=== PATIENT | male | born 1980 | race Caucasian/White ===

== ENCOUNTER 2017-09-26 19:14 | Emergency (ER) | payer OTHER ==
[~2017-09-26] VITALS: Ht 165.1 cm; Wt 97.1 kg
[2017-09-26 19:19] VITALS: Ht 165.1 cm; Wt 97.1 kg
[2017-09-26 22:52] VITALS: BP 124/93
== END 2017-09-26 22:52 | disposition home or self-care (01) ==
LOC: ED 19:14
DX: J02.9 Acute pharyngitis, unspecified (principal); R68.84 Jaw pain; E11.9 Type 2 diabetes mellitus without complications
CPT/HCPCS: J1100

== ENCOUNTER 2018-02-20 17:41 | Emergency (ER) | payer OTHER ==
[~2018-02-20] VITALS: Ht 165.1 cm; Wt 96.2 kg
[2018-02-20 17:54] VITALS: Ht 165.1 cm; Wt 96.2 kg
[2018-02-20 21:00] LABS: BASOPHIL % 0.5 % (0-2); PLATELET COUNT 199 x10^3mcL (130-400); RED CELL DISTRIBUTION WIDTH 13.3 % (11.5-14.5)
[2018-02-20 21:09] LABS: CALCIUM 9.1 mg/dL (8.5-10.1); CHLORIDE SERUM 103 mmol/L (98-107); CREATININE SERUM 0.7 mg/dL (0.7-1.3); GFR1 > 60 mL/min; GLUCOSE SERUM 194 mg/dL (74-106); POTASSIUM SERUM 4.3 mmol/L (3.5-5.1); SODIUM SERUM 138 mmol/L (136-145)
[2018-02-20 21:14] LABS: ALBUMIN 3.4 g/dL (3.4-5.0); ALKALINE PHOSPHATASE 90 U/L (46-116); ALT/SGPT 42 U/L (16-63); AST/SGOT 19 U/L (15-37); BILIRUBIN TOTAL 0.5 mg/dL (0.20-1.00); TOTAL PROTEIN, SERUM 7.9 g/dL (6.4-8.2)
[2018-02-20 22:36] VITALS: BP 147/95
== END 2018-02-20 22:36 | disposition home or self-care (01) ==
LOC: ED 17:41
PROVIDERS: Emergency Medicine
DX: R51 Headache (principal); E11.9 Type 2 diabetes mellitus without complications; Z85.47 Personal history of malignant neoplasm of testis
CPT/HCPCS: 36415; 82962; J1885

== ENCOUNTER 2018-12-27 19:24 | Emergency (ER) | payer OTHER ==
[~2018-12-27] VITALS: Ht 167.6 cm; Wt 97.5 kg
[2018-12-27 19:26] VITALS: Ht 167.6 cm; Wt 97.5 kg
[2018-12-27 21:45] VITALS: BP 143/93
== END 2018-12-27 21:45 | disposition home or self-care (01) ==
LOC: ED 19:24
DX: S60.411A Abrasion of left index finger, initial encounter (principal); S60.413A Abrasion of left middle finger, initial encounter; L03.012 Cellulitis of left finger; W22.8XXA Striking against or struck by other objects, initial encounter; Y93.89 Activity, other specified; Y92.89 Other specified places as the place of occurrence of the external cause; Y99.8 Other external cause status; E11.9 Type 2 diabetes mellitus without complications
CPT/HCPCS: 90715; J1885; Q0092